=== PATIENT | male | born 1975 | race Caucasian/White ===

== ENCOUNTER 2024-09-08 21:51 | Emergency (ER) | payer BC ==
[2024-09-08] MEDS: cefTRIAXone 2 GM, Lidocaine 1% 4.2 ML IM ONE (22:31)
== END 2024-09-08 22:35 | disposition home or self-care (01) ==
LOC: EDBD 21:51 → JD.ED 21:51
DX: L02.413 Cutaneous abscess of right upper limb (principal); L02.423 Furuncle of right upper limb; F17.200 Nicotine dependence, unspecified, uncomplicated; Z91.030 Bee allergy status
CPT/HCPCS: 96372; 99283; A9270; J0696; J2003